=== PATIENT | male | born 1955 | race Caucasian/White ===

== ENCOUNTER 2017-03-18 14:02 | Emergency (ER) | payer BC ==
[2017-03-18] MEDS ORDERED: ceFAZolin 1,000 MG VIAL IM STA (15:05)
[2017-03-18] MEDS ORDERED: DIPH,PERTUS(ACELL)TETVAC-LF 0.5 ML VIAL IM ONE (15:05)
--- NOTE | 2017-03-18 15:58 | ED ---
Wound/Laceration HPI - General Chief Complaint: Wound/Laceration Stated Complaint: thumb injury/crossbow Time Seen by Provider: 03/18/17 14:59 Source: patient Mode of arrival: ambulatory Limitations: no limitations - History of Present Illness Initial Comments: 61-year-old male patient presents to emergency department today for evaluation of a laceration to his left thumb. Patient states that he was practicing firing his crossbow, states that he released trigger with his thumb up and the string caught his thumb on the fire. Patient states he was seen at the clinic in [place] where they did do an x-ray, they state that he did have a fracture and instructed him to present here for further evaluation. Patient does have a laceration to the left thumb involving the nail. Patient denies any numbness or tingling to the thumb. States his last tetanus shot was in the . Denies any limitation to movement of the thumb. He denies any other injuries. Denies any other physical complaints or concerns. - Related Data Previous Rx's Medication Instructions Recorded Cephalexin [Keflex] 500 mg PO QID #21 cap 03/18/17 Allergies Allergy/AdvReac Type Severity Reaction Status Date / Time No Known Allergies Allergy Verified 03/18/17 14:09 Review of Systems ROS Statement: Those systems with pertinent positive or pertinent negative responses have been documented in the HPI. ROS Other: All systems not noted in ROS Statement are negative. Past Medical History Past Medical History: No Reported History History of Any Multi-Drug Resistant Organisms: None Reported Past Surgical History: No Surgical Hx Reported Past Psychological History: No Psychological Hx Reported Smoking Status: Never smoker Past Alcohol Use History: Occasional Past Drug Use History: None Reported General Exam Limitations: no limitations General appearance: alert, in no apparent distress Respiratory exam: Present: normal lung sounds bilaterally. Absent: respiratory distress, wheezes, rales, rhonchi, stridor Cardiovascular Exam: Present: regular rate, normal rhythm, normal heart sounds. Absent: systolic murmur, diastolic murmur, rubs, gallop, clicks Extremities exam: Present: full ROM, normal capillary refill, other (Left thumb partial nail avulsion, laceration to the palmar aspect of the left thumb that extends up to the nail bed. Full range of motion of the thumb present however patient reports pain. Otherwise skin is pink, warm, and dry. Cap refill less than 3 seconds.). Absent: normal inspection, tenderness, pedal edema, joint swelling, calf tenderness Neurological exam: Present: alert, oriented X3, CN II-XII intact Psychiatric exam: Present: normal affect, normal mood Skin exam: Present: warm, dry, intact, normal color. Absent: rash Course Vital Signs 03/18/17 03/18/17 14:05 16:10 Temperature 98.1 F 98.4 F Pulse Rate 70 74 Respiratory 16 17 Rate Blood Pressure 141/64 138/60 O2 Sat by Pulse 98 Oximetry Procedures - Laceration Laceration #1 Consent Obtained: verbal consent Time Out Performed: Yes Indication: laceration Site: other (Left thumb) Size (cm): 3 Description: linear, flap, avulsion Depth: simple, single layer Anesthetic Used: lidocaine 1% Anesthesia Technique: local infiltration, nerve block Amount (mls): 5 Type of Sutures: nylon Size of Sutures: 4-0 (1 suture using 4-0 to the nail of the thumb.), 5-0 (3 5- 0 sutures placed.) Number of Sutures: 4 Technique: simple, interrupted Patient Tolerated Procedure: well, no complications Medical Decision Making - Medical Decision Making 61-year-old male patient presented to emergency department today for evaluation of left thumb injury. X-ray from [facility] was reviewed and did show a distal phalanx fracture. Laceration was repaired with 4 sutures placed. Patient instructed to return in 7 days for suture removal. Tetanus vaccine was updated. Patient was given IM Kefzol as well as a prescription for Keflex. Patient was instructed to follow-up with orthopedics for reevaluation in one to 2 days. Instructed to return immediately for any new, worsening, or concerning symptoms. Instructed to follow up with primary care physician 1-2 days for recheck. - Radiology Data Radiology results: image reviewed Reviewed x-ray which did show an avulsion fracture to the distal tip of the first digit. Disposition Clinical Impression: Laceration of left thumb with damage to nail Disposition: HOME SELF-CARE Condition: Good Instructions: Care For Your Stitches (ED), Finger Laceration (ED) Additional Instructions: Gently wash wound twice daily with warm water and antibacterial soap. Complete antibiotics in full. Take ibuprofen, for pain control. Return in 7 days to have stitches removed. All the primary care physician for recheck in 1-2 days. Return immediately for any new, worsening, or concerning symptoms. Prescriptions: Cephalexin [Keflex] 500 mg PO QID #21 cap Referrals: None,Stated [Primary Care Provider] - 1-2 days Time of Disposition: 15:57
[2017-03-18 16:11] VITALS: BP 138/60; PULSE 74; RESP 17; TEMP 98.4
== END 2017-03-18 16:10 | disposition home or self-care (01) ==
LOC: EC 14:02
DX: S61.012A Laceration without foreign body of left thumb without damage to nail, initial encounter (principal); Z23 Encounter for immunization; W26.8XXA Contact with other sharp object(s), not elsewhere classified, initial encounter; Y92.89 Other specified places as the place of occurrence of the external cause
CPT/HCPCS: 90715; 99283; 12002; 90471; J0690